=== PATIENT | male | born 1945 | race Caucasian/White ===

== ENCOUNTER 2016-11-04 22:17 | Inpatient (IN) | payer MEDICARE, MEDICAID ==
[~2016-11-04] VITALS: Ht 182.9 cm; Wt 89.6 kg
--- NOTE | ~2016-11-04 | ECH ---
Transthoracic Echocardiography Report (TTE) Demographics Patient Name TAMIKO MARTI Date of Study 11/10/2016 Patient Number [id number] Visit Number [id number] Date of 1945 Room Number 313 Accession Number [id number] Gender Male Age 71 year(s) Referring Derick Ghotra Medical Staff Assistant Jcaki Hayden Physician Yannick Montano MD Physician Interpreting Hamilton Garrido MD Supervisor Sawmill Physician Supervising Ordering Physician Sandra Montano MD, MD/MLP Nurse Stress Vibratory Pile Driver Conclusions Summary Technically difficult exam to perform due patients severe COPD. Very low parasternal window. The estimated left ventricular ejection fraction is 55-60%. There is trivial aortic regurgitation by color Doppler. Mild tricuspid regurgitation by color Doppler. There is moderate pulmonary hypertension. The pulmonary pressure (RVSP) is 51 mmHg. The aortic root appears mildly dilated. The maximum diameter measures 3.8 cm. Procedure Type of Study TTE procedure:Echo Complete SF. Procedure Date Date: 11/10/2016 Start: 12:51 PM Technical Quality: Fair due to lung interference. Indications:Congestive heart failure and Hypertension. Height: 72 inches Weight: 197 pounds BSA: 2.12 m Rhythm: Within normal limits HR: 71 bpm BP: 121/72 mmHg M-Mode/2D Measurements LV Diastolic Dimension: 4.01 cm LV Systolic Dimension: 2.69 cm LV Septum Diastolic: 0.78 cm LV PW Diastolic: 0.64 cm AO Root Dimension: 3.82 cm Cardiac Output: 4.79 l/min LA Dimension: 2.94 cm Cardiac Index: 2.26 l/min*m RV Diastolic Dimension: 3.23 cm LA volume index: 26 ml/m LVOT: 2.09 cm LVOT VTI: 19.67 cm RV Base: 3.2 cm LV Stroke volume: 67.45 ml RV Mid: 1.8 cm LV Stroke volume index: 31.82 ml/m TAPSE: 1.6 cm TDI-S': 13 cm/s Doppler Measurements AV Peak Velocity: 1.4 m/s MV Peak E-Wave: 1.07 m/s AV Peak Gradient: 7.84 mmHg MV Peak A-Wave: 0.86 m/s AV Mean Gradient: 3.61 mmHg MV E/A Ratio: 1.25 LVOT Peak Velocity: 0.7 m/s MV P1/2t: 45.7 msec AV Area (Continuity):2.49 cm MV Deceleration Time: 161.6 msec TR Velocity:3.47 m/s MV Area (PHT): 4.82 cm TR Gradient:48.19 mmHg PV Peak Velocity: 0.66 m/s Estimated RAP:3 mmHg PV Peak Gradient: 1.77 mmHg Estimated RVSP: 51 mmHg Estimated PASP: 51.19 mmHg E' Septal Velocity: 0.1 m/s A' Lateral Velocity: 0.09 m/s E' Lateral Velocity: 0.11 m/s RA Area: 13.63 cm Findings Left Ventricle Normal left ventricle size and function. Diastolic assessment reveals normal relaxation. Right Ventricle Normal right ventricle structure and function. Left Atrium Normal left atrial size. Right Atrium Normal right atrial size. Mitral Valve Normal mitral valve structure and function. Trivial mitral regurgitation by color Doppler. Aortic Valve The aortic valve was not well imaged. There is trivial aortic regurgitation by color Doppler. Tricuspid Valve Normal tricuspid valve structure and function. Mild tricuspid regurgitation by color Doppler. There is moderate pulmonary hypertension. The pulmonary pressure (RVSP) is 51 mmHg. Pulmonic Valve The pulmonic valve is not well visualized. Pericardial Effusion No evidence of pericardial effusion. Miscellaneous The aortic root appears mildly dilated. The maximum diameter measures 3.8 cm. Ascending aorta not well visualized. Pleural Effusion No evidence of pleural effusion. Signature
--- NOTE | ~2016-11-04 | CO ---
ADMIT: 11/04/2016 RM/LOC: 313 [facility] MR#: [id number] [address] [facility] [address] [place] [id number] TAMIKO MARTI [address] [place] [address] Consultation SEX: M AGE: 71 : 1945 DATE OF CONSULTATION: 11/04/2016 ATTENDING PHYSICIAN: Zonia Lanier CONSULTING PHYSICIAN: Olvin Sepulveda MD REASON FOR CONSULTATION: Respiratory failure. HISTORY OF PRESENT ILLNESS: A 71-year-old male with an underlying history of COPD. He is unable to give any history and history was obtained from the chart. He presented to [place] with shortness of breath. According to the records, this had started today. On arrival to the ER in [place], he was in significant distress requiring intubation. Arterial blood gas that reveal a pH of 7.08, pCO2 of 105, and PO2 of 93. He was transferred here after being intubated and I am asked to see him. There has not been any mention of purulent phlegm production, fevers, or hemoptysis. Chart states that he is a prior tobacco user, quitting about 1 year ago. It appears that he uses albuterol, Advair, and Singulair at home. I would mention also that he gives a history of tremor and he is on propranolol. On arrival here, his blood pressure has been on the low side. IV access has been a challenge. There has not been any significant arrhythmias identified. No hemoptysis or melena. PAST MEDICAL HISTORY: 1. COPD. 2. Hypertension. 3. Hyperlipidemia. 4. Gastroesophageal reflux disease. 5. Tremor. MEDICATIONS AT HOME: Included: 1. Albuterol. 2. Advair. 3. Crestor. 4. Lisinopril. 5. Loratadine. 6. Singulair. 7. Prilosec. 8. Propranolol. 9. Tylenol. ALLERGIES: NONE. SOCIAL HISTORY: Prior tobacco user. Quitting about 1 year ago. FAMILY HISTORY: Mother had dementia. Brother had colon cancer. REVIEW OF SYSTEMS: GENERAL: Based upon the chart, there has not been any ADMIT: 11/04/2016 RM/LOC: 313 [facility] MR#: [id number] [address] [facility] [address] [place] [id number] TAMIKO MARTI [address] [address] Consultation SEX: M AGE: 71 : 1945 overt fevers. SKIN: No rash. HEAD AND NECK: No witnessed swallowing or aspiration problems. EYES: No visual problems. RESPIRATORY: As above. CARDIAC: No anginal symptoms. He has had low blood pressure. No arrhythmias. GI: No nausea, vomiting, hematemesis, or melena. : No dysuria, frequency, or hematuria. MUSCULOSKELETAL: No new arthritis or arthralgias. NEUROLOGIC: No new focal complaints. PHYSICAL EXAMINATION: VITAL SIGNS: Listed on the chart and are reviewed. GENERAL: White male. Currently sedated. Orotracheally intubated. He does not arouse to follow any commands currently. SKIN: Warm and dry. No overt rash. HEAD AND NECK: Normocephalic. No scleral icterus. Orotracheally intubated. NECK: Supple. LUNGS: Reveal decreased breath sounds. Faint wheezing is noted. HEART: Regular rate and rhythm. Slightly tachycardic. ABDOMEN: Soft and nontender. EXTREMITIES: Revealed no clubbing, cyanosis, or edema. NEUROLOGIC: Currently sedated, but moves all 4 extremities. LABORATORY AND DIAGNOSTIC DATA: Chest x-ray reveals hyperinflation. I cannot rule out may be some vague basilar infiltrate. White count 21.7, hemoglobin 14.6, and platelet count 250,000. Sodium 137, potassium 5.8, BUN 35, and creatinine 1.5. Arterial blood gas; pH 7.08, pCO2 of 105, PO2 of 93 in [place]. ASSESSMENT: 1. Hypercarbic respiratory failure. 2. Chronic obstructive pulmonary disease exacerbation. 3. Possible element of community-acquired pneumonia. 4. Hypotension. 5. Underlying history of tremor. 6. History of gastroesophageal reflux disease. Presentation certainly consistent with chronic obstructive pulmonary disease exacerbation. I suspected it probably has an asthma component as well considering his presentation and his baseline medications. We can clarify some of this with his family once they are available. He does have hypotension, but I seem this is related to some element of iron depletion as well as the effect of intubation and sedations medications. Plan will be for mechanical ventilation. We will provide bronchodilators and corticosteroids aimed at his COPD. We will utilize Rocephin and Zithromax ADMIT: 11/04/2016 RM/LOC: 313 [facility] MR#: [id number] [address] [address] [place] [address] Consultation SEX: M AGE: 71 : 1945 aimed at community-acquired pneumonia. He will likely need intravenous access for blood pressure management and for IV access for ICU care. Further workup and therapeutic nursing depending on his course. Thank you for allowing me to participate in the care of this patient as always, if you have any questions, please feel free to contact me. I discussed this case with Dr. Zonia Lanier as well. This represents 50 minutes of critical care time spent directly with this patient not including procedures. Olvin Sepulveda MD/ mona JOB #: [id number] CC: Zonia Lanier, Attending Physician Quinn Sepulveda, Family Physician MD Quinn Larsen MD
--- NOTE | 2016-11-05 20:34 | OR ---
ADMIT: 11/04/2016 RM/LOC: 313 [facility] MR#: [id number] 2620 [facility] [address] [place] [id number] TAMIKO MARTI [address] [place] [address] Operative/Delivery Room Report SEX: M AGE: 71 : 1945 SURGERY DATE: 11/04/2016 SURGEON: Olvin Sepulveda MD PROCEDURE: Central line placement. DIAGNOSES: Hypotension and critical illness with poor IV access. This is a 71-year-old male, hypotensive with poor IV access. Central venous catheter placement was indicated. Informed consent was obtained from family and they understand risks and benefits including bleeding and hemothorax, and agreed to proceed. The procedure was somewhat urgently. Area of the right internal jugular vein was initially evaluated by ultrasound. Area of vein was identified and marked. This area was subsequently prepped and draped in a sterile fashion. Lidocaine was used locally for anesthesia. The right internal jugular vein was cannulated without difficulty, and a triple lumen central venous catheter was placed using Seldinger technique. There was good blood return from all three ports. The catheter was sutured into place and there were no immediate complications. Chest x-ray has been ordered. Olvin Sepulveda MD/ mona JOB #: [id number] CC: Zonia Lanier, Attending Physician Quinn Sepulveda, Family Physician
[2016-11-13] MEDS ORDERED: NORVASC DPS10 MG PO (10:54)
[2016-11-13] MEDS ORDERED: ZYRTEC DPS10 MG PO (10:55)
[2016-11-13] MEDS ORDERED: MONTELUKAST SOD10 MG PO (10:55)
[2016-11-13] MEDS ORDERED: ZOLOFT DPS100 MG PO (10:55)
[2016-11-13] MEDS ORDERED: PRILOSEC DPS20 MG PO (10:55)
[2016-11-13] MEDS ORDERED: TYLENOL DPS325 MG PO (10:55)
[2016-11-13] MEDS ORDERED: CIPRO DPS500 MG PO (10:56)
--- NOTE | 2016-11-17 08:04 | DS ---
ADMIT: 11/04/2016 RM/LOC: 424 [facility] MR#: [id number] 2620 [facility] [address] [place], [place] [address] TAMIKO MARTI [address] [place] [address] Discharge Summary SEX: M AGE: 71 : 1945 ADMISSION DATE: 11/04/2016 DISCHARGE DATE: 11/12/2016 CONSULTATIONS: Pulmonology-Olvin Sepulveda MD FINAL DIAGNOSES: 1. Acute respiratory failure. 2. Acute chronic obstructive pulmonary disease exacerbation. 3. Pneumonia. 4. Elevated troponin. 5. Acute kidney injury. 6. Acute diastolic heart failure exacerbation. 7. Chronic respiratory failure. 8. SVT (supraventricular tachycardia). REASON FOR ADMISSION: The patient is a 71-year-old gentleman transferred in from an outside hospital with respiratory distress. Ultimately worsened and required intubation. The patient slowly recovered from his pneumonia and acute COPD exacerbation. Pulmonary was consulted prior to his intubation. The patient very slowly and steadily improved with aggressive pulmonary treatments. Ultimately able to be extubated and weaned down on his oxygen. Had some hypervolemic acute diastolic heart failure and was aggressively diuresed. Overall, slowly and steadily improved although still weak. Ultimate plans were for him to go to swing bed for further strengthening. DISCHARGE MEDICATIONS: Please see discharge JUL, which I reviewed. He will follow up with his PCP in the next week or two after his discharge from swing bed. Daniel Flores MD/ xiomara JOB #: [id number] CC: Zonia Lanier MD, Attending Physician Quinn Sepulveda MD, Family Physician
--- NOTE | 2016-11-22 01:07 | HP ---
ADMIT: 11/04/2016 RM/LOC: 313 [facility] MR#: [id number] 2620 [facility] [address] [place], [place] [address] GORDO MARTI [address] [place] [address] History and Physical SEX: M AGE: 71 : 1945 Corrected: 11/05/2016 1026 ajf DATE OF SERVICE: CHIEF COMPLAINT: Respiratory failure. HISTORY OF PRESENT ILLNESS: Gordo is an approximately 71-year-old gentleman from [place], [place], who has known oxygen-dependent COPD. According to his neighbors, he typically wears approximately 1 L of oxygen. On the day of admission, he noted becoming increasingly short of breath at approximately 11 o'clock in the morning. At approximately 5 o'clock or so, he contacted his neighbor in respiratory distress. As a matter of fact, the neighbor he called could hardly understand what he was saying on the other end of the phone because of his respiratory compromise. He was barely a whisper. A friend immediately went over to his house. He found him sitting in respiratory distress and unable to carry out a conversation. EMS was summoned. He became increasingly lethargic. On arrival to the emergency room in [place], he was noted to have an ABG with pH of 7.08, pCO2 of 105, and a PO2 of 93 on 6 L of oxygen. His white count was 21. He was hypertensive with a blood pressure of 186/102, and would nod when answering questions, but that was about the extent of his interaction. Once he was intubated, he was given Versed and his blood pressure did decline. [place] was contacted and accepted him in transfer. On arrival, his IV was lost and his systolic blood pressure was in the mid 60s. Thankfully, Critical Care Medicine with Dr. Raymundo Sepulveda was present. Central line was placed and fluid resuscitation was started. He is admitted to myself as city call physician for continued treatment. PAST MEDICAL HISTORY: Obtained from the chart from [place]. Past medical history includes: 1. COPD, O2 dependent according to his friend of Zuri He. 2. GERD. 3. Hypertension. 4. Hypertriglyceridemia. 5. Hypoxemia. 6. Edema. 7. Tremor. 8. History of tobacco use. 9. Healthcare maintenance, Prevnar 13, 05/08/2016. MEDICATIONS: 1. Crestor 10 mg daily. 2. Prilosec 20 mg daily. 3. Albuterol q.4 hours. 4. Fluticasone and salmeterol 250/50 b.i.d. 5. Lisinopril 20 mg daily. 6. Loratadine 10 mg daily. 7. Singulair 10 mg daily. 8. Propranolol 40 mg daily. ADMIT: 11/04/2016 RM/LOC: 313 [facility] MR#: [id number] [address] [id number] [place] [address] History and Physical SEX: M AGE: 71 : 1945 ALLERGIES: NONE KNOWN. SOCIAL HISTORY: No recent smoking. Previously, one pack a month from ages 14 to 70. He is retired. He is single at this time, but apparently he does have children, so I wonder if he is or . No alcohol according to the records. FAMILY HISTORY: Alzheimer's in his mother. Colon cancer in a brother. REVIEW OF SYSTEMS: Not obtainable because he is intubated and sedated. PHYSICAL EXAMINATION: VITAL SIGNS: Vitals at this time with a systolic blood pressure of 68, pulse 110. GENERAL: This is a well-developed, chronically ill appearing elderly male, who is somewhat pale. Lying in bed, intubated and sedated. SKIN: Warm to the touch. Very dry in his lower extremities. HEENT: Normocephalic. No trauma noted. NECK: Supple. LUNGS: With actually pretty good air movement and no wheezing at this time. CARDIOVASCULAR: Regular to tachycardic. Distant. ABDOMEN: Soft, nontender. No organomegaly or masses. GENITOURINARY/RECTAL: Deferred. EXTREMITIES: With trace edema. IMPRESSION: 1. Acute hypercarbic respiratory failure. 2. Hypoxemia. 3. Hypotension with history of hypertension. 4. History of tobacco abuse. 5. Chronic obstructive pulmonary disease. DISCUSSION: We will go ahead and treat for community-acquired pneumonia. His chest x-ray is pretty unremarkable. Initially, he was not difficult to oxygenate. It was more of an acidotic issue from respiratory failure. I do not see a reason to check for PE for this reason. We will go and give him some Lovenox for DVT prophylaxis. Pulmonary is involved and will manage the vent. Hopefully, we will be able to extubate him within a reasonable amount of time. ADMIT: 11/04/2016 RM/LOC: 313 [facility] MR#: [id number] [address] [place] [id number] [place] [address] History and Physical SEX: M AGE: 71 : 1945 PLAN: 1. IV fluids. 2. Ventilator. 3. Rocephin and Zithromax. 4. See chart. oZnia Lanier MD/ mona JOB #: [id number] CC: Zonia Lanier, Attending Physician Quinn Sepulveda, Family Physician MD Dr. Raymundo Emmanuel, Pulmonary [place] Corrected: 11/05/2016 1026 [facility]
== END 2016-11-12 13:04 | DRG 208 ==
LOC: 3ICU 22:17 → 4PCU 11-10 17:59
PROVIDERS: ADMIT Internal Medicine
PROC: 5A1945Z Respiratory Ventilation, 24-96 Consecutive Hours (ICD-10-PCS; principal; 2016-11-04)
PROC: 3E0G76Z Introduction of Nutritional Substance into Upper GI, Via Natural or Artificial Opening (ICD-10-PCS; 2016-11-05)
PROC: 0B938ZX Drainage of Right Main Bronchus, Via Natural or Artificial Opening Endoscopic, Diagnostic (ICD-10-PCS; 2016-11-05)
PROC: 02HV33Z Insertion of Infusion Device into Superior Vena Cava, Percutaneous Approach (ICD-10-PCS; 2016-11-05)
DX: J96.21 Acute and chronic respiratory failure with hypoxia (principal); J18.9 Pneumonia, unspecified organism; I50.31 Acute diastolic (congestive) heart failure; E87.2 Acidosis; N17.9 Acute kidney failure, unspecified; I95.9 Hypotension, unspecified; I11.0 Hypertensive heart disease with heart failure; J44.1 Chronic obstructive pulmonary disease with (acute) exacerbation; J44.0 Chronic obstructive pulmonary disease with (acute) lower respiratory infection; J96.22 Acute and chronic respiratory failure with hypercapnia; R79.89 Other specified abnormal findings of blood chemistry; R73.9 Hyperglycemia, unspecified; K21.9 Gastro-esophageal reflux disease without esophagitis; E78.1 Pure hyperglyceridemia; R25.1 Tremor, unspecified; Z87.891 Personal history of nicotine dependence; Z99.81 Dependence on supplemental oxygen